=== PATIENT | female | born 1980 | race Caucasian/White ===

== ENCOUNTER 2021-11-14 13:31 | Emergency (ER) | payer BC, SELFPAY ==
--- NOTE | ~2021-11-14 | XR_ITS ---
EXAMINATION: XR chest 2V 11/14/2021 17:24 INDICATION: Cough and shortness of breath. PROCEDURE: 2 view chest COMPARISON: No prior studies for comparison. FINDINGS: The lungs are clear. The cardiomediastinal silhouette is within normal limits. There are no pleural effusions. There is no pneumothorax suspected. IMPRESSION: 1: NO ACUTE CARDIOPULMONARY DISEASE. Reviewed, dictated and finalized at location A. [facility] PATHOLOGY ASSISTANT
[2021-11-14 14:00] VITALS: BP 128/80; PULSE 99; RESP 16; TEMP 36.6; O2SAT 100
[2021-11-14 16:53] VITALS: BP 132/94; PULSE 90; RESP 16; TEMP 37; O2SAT 99
[2021-11-14 18:15] LABS: Basophils Percent Auto 0.6 % (0.2-1.2); Eosinophils Absolute Auto 0.1 K/mm3 (0-0.3); Eosinophils Percent Auto 1.7 % (0-4.4); Hematocrit 40.6 % (37.0-47.0); Hemoglobin 13.8 g/dL (12.0-15.0); Immature Granulocyte Absolute 0.03 K/mm3 (0.00-0.031); Immature Granulocyte Percent A 0.5 % (0-0.5); Lymphocytes Absolute Auto 2.72 K/mm3 (0.9-3.2); Lymphocytes Percent Auto 42.8 % (18.3-44.2); Mean Corpuscular Hemoglobin 31.1 pg (26-34); Mean Corpuscular Volume 91.4 fl (80-100); Mean Platelet Volume 8.3 fl (7.4-10.4); Monocytes Absolute Auto 0.4 K/mm3 (0.1-0.6); Monocytes Percent Auto 6.8 % (2.6-8.5); Neutrophils Percent Auto 47.6 % (45.5-73.1); Platelet Count Result 299 k/mm3 (150-375); Red Blood Count 4.44 M/mm3 (4.2-5.4); Red Cell Distribution Width 12.3 % (11.5-14.5); White Blood Count 6.4 K/mm3 (4.5-10.0)
[2021-11-14 18:21] LABS: D Dimer 0.33 ug/mL (<0.48)
--- NOTE | 2021-11-14 18:41 | ED.GENADULT ---
HPI - General Adult General Chief complaint: Unspecified Stated complaint: R Rib Pain x 2 days Time Seen by Provider: 11/14/21 17:02 Source: patient Mode of arrival: ambulatory Limitations: no limitations History of Present Illness HPI narrative: 40-year-old female Here because of right-sided lateral chest and rib pain To bothersome at rest hurts when she breathes and with certain movements The only thing that she recalls it might of happened when she was at work pulling something onto a trailer several days ago and gave it a good hard yank and the symptoms have been subsequent to that She does not have a cough or shortness of breath and no other systemic symptoms and no other injuries Related Data Allergies Allergy/AdvReac Type Severity Reaction Status Date / Time No Known Allergies Allergy Verified 11/14/21 16:56 Review of Systems Review of Systems: All systems reviewed & are unremarkable except as noted in HPI and below Constitutional: Constitutional: Reports no additional constitutional complaints, Denies chills and Denies fever(s) ENT: Denies headache(s) Cardiovascular: Cardiovascular: Reports chest pain, Reports chest pain with activity, Denies radiating jaw, neck or arm pain and Denies dyspnea Respiratory: Respiratory: Denies cough and Denies dyspnea Gastrointestinal: Gastrointestinal: Denies abdominal pain and Denies vomiting Genitourinary: Genitourinary: Denies hematuria Musculoskeletal: Musculoskeletal: Denies neck pain, Denies numbness, Denies radiating pain into limb and Denies stiffness Integumentary/Breasts: Skin/Breast: Denies rash and Denies wounds Neurologic: Denies headache(s) Psychiatric: Psychiatric: Reports no additional psychiatric complaints Exam Const: General: cooperative and no acute distress Orientation/consciousness: patient oriented x3 (alert) HENMT: Head: normal to inspection, normocephalic and atraumatic Ears: external ears normal General nose exam: no epistaxis Eyes: Conjunctivae: conjunctivae normal EOM: EOMs intact bilaterally Neck: Neck: normal visual inspection, supple and no JVD Chest: Chest palpation & inspection: normal inspection of the chest, normal palpation of entire chest wall, no crepitus, no localized rib tenderness and no tenderness Other: Cannot find any localizing tenderness but localized pain is reproduced with with twisting movements or with flexing the torso laterally to the left Resp: Effort & Inspection: normal respiratory effort and not labored Auscultation: clear to auscultation bilaterally, no rales, no rhonchi and no wheezes Cardio: Rate: regular rate Rhythm: regular rhythm Heart sounds: no murmurs Skin: General skin exam: normal color and no rashes or lesions noted Neuro: General: patient oriented x3 (alert) and moves all extremities Speech: normal speech Psych: Affect: normal affect Course Course Emergency Course: Went over the chest x-ray result with the patient and the likely diagnosis of intercostal strain but she left before her labs are returned and without receiving her discharge directions Vital Signs Vital signs: Vital Signs Temperature 36.6 C 11/14/21 14:00 Pulse Rate 99 11/14/21 14:00 Respiratory Rate 16 11/14/21 14:00 Blood Pressure 128/80 11/14/21 14:00 Pulse Oximetry 100 11/14/21 14:00 Temperature 37.0 C 11/14/21 16:53 Pulse Rate 90 11/14/21 16:53 Respiratory Rate 16 11/14/21 16:53 Blood Pressure 132/94 H 11/14/21 16:53 Pulse Oximetry 99 11/14/21 16:53 Medical Decision Making Vital Signs Vital Signs: Vital Signs Temperature 36.6 C 11/14/21 14:00 Pulse Rate 99 11/14/21 14:00 Respiratory Rate 16 11/14/21 14:00 Blood Pressure 128/80 11/14/21 14:00 Pulse Oximetry 100 11/14/21 14:00 Temperature 37.0 C 11/14/21 16:53 Pulse Rate 90 11/14/21 16:53 Respiratory Rate 16 11/14/21 16:53 Blood Pressure 132/94 H 11/14/21 16:53 Pulse Oximetry 99
== END 2021-11-14 18:46 | disposition left against medical advice (07) ==
PROVIDERS: Emergency Provider Emergency Medicine
DX: S29.011A Strain of muscle and tendon of front wall of thorax, initial encounter (principal); X50.0XXA Overexertion from strenuous movement or load, initial encounter
CPT/HCPCS: 36415; 71046; 85025; 85380; 99283

== ENCOUNTER 2022-10-18 08:38 | Emergency (ER) | payer BC, SELFPAY ==
--- NOTE | ~2022-10-18 | XR_ITS ---
EXAMINATION: XR chest 2V DATE: 10/18/2022 09:16 INDICATION: Shortness of breath. TECHNIQUE: Frontal and lateral views of the chest were obtained. COMPARISON: Chest 2 views 11/14/2021 FINDINGS: The chest demonstrates clear lungs without pneumonia, pleural effusion, or pneumothorax. Th e heart size is normal. IMPRESSION: 1. No acute cardiopulmonary disease. Reviewed, dictated and finalized at location A. CY SALES DIRECTOR
--- NOTE | 2022-10-18 08:40 | ECG_ITS ---
Measurements Intervals [place] Rate: 75 P: 69 MT: 149 QRS: 86 QRSD: 112 T: 58 QT: 386 QTc: 434 Interpretive Statements SINUS RHYTHM INCOMPLETE RIGHT BUNDLE BRANCH BLOCK DELAYED PRECORDIAL R/S TRANSITION BORDERLINE ECG NO PREVIOUS ECG AVAILABLE FOR COMPARISON Electronically Signed On 10-18-2022 9:13:31 PRODUCT INFO SPECIALIST by Judson Maravilla D.O.
[2022-10-18 08:42] VITALS: BP 120/66; PULSE 76; RESP 19; TEMP 36.7; O2SAT 100
[2022-10-18 09:02] LABS: Basophils Percent Auto 0.3 % (0.2-1.2); Eosinophils Absolute Auto 0.1 K/mm3 (0-0.3); Eosinophils Percent Auto 1.3 % (0-4.4); Hematocrit 34.8 % (37.0-47.0); Hemoglobin 11.4 g/dL (12.0-15.0); Immature Granulocyte Absolute 0.03 K/mm3 (0.00-0.031); Immature Granulocyte Percent A 0.4 % (0-0.5); Lymphocytes Absolute Auto 1.56 K/mm3 (0.9-3.2); Lymphocytes Percent Auto 22.5 % (18.3-44.2); Mean Corpuscular HGB Conc 32.8 g/dl (32-36); Mean Corpuscular Hemoglobin 30.6 pg (26-34); Mean Corpuscular Volume 93.5 fl (80-100); Mean Platelet Volume 8.6 fl (7.4-10.4); Monocytes Absolute Auto 0.5 K/mm3 (0.1-0.6); Monocytes Percent Auto 6.6 % (2.6-8.5); Neutrophils Absolute Auto 4.8 K/mm3 (1.3-6.7); Neutrophils Percent Auto 68.9 % (45.5-73.1); Platelet Count Result 302 k/mm3 (150-375); Red Blood Count 3.72 M/mm3 (4.2-5.4); White Blood Count 6.9 K/mm3 (4.5-10.0)
[2022-10-18 09:13] LABS: Alanine Aminotransferase 23 U/L (6-35); Albumin Level 4.1 g/dL (3.5-5.1); Alkaline Phosphatase 56 U/L (38-126); Anion Gap 11 mmol/L (8-16); Aspartate Amino Transferase 27 U/L (14-36); Bilirubin,Total 0.2 mg/dL (0.2-1.3); Blood Urea Nitrogen 14 mg/dL (7-17); Calcium 8.7 mg/dL (8.4-10.2); Carbon Dioxide 23 mmol/L (22-30); Chloride 105 mmol/L (98-107); Estimated CRCL calculation 104 ml/min; Estimated Glomerular Filt Rate > 60; Glucose 123 mg/dL (65-110); Potassium 3.9 mmol/L (3.4-5.0); Sodium 139 mmol/L (137-145)
[2022-10-18 09:14] LABS: Appearance Urine Slightly Cloudy (Clear); Bilirubin Urine Negative (Negative); Blood Urine Negative (Negative); Color Urine Yellow (Yellow); Glucose Urine UA Negative (Negative); Ketones Urine Trace mg/dL (Negative); Leukocyte Esterase Ur Trace LEU/UL (Negative); Nitrate Urine Negative (Negative); Protein Urine 1+ mg/dL (Negative); Specific Grav Ur 1.025 (1.001-1.035)
[2022-10-18 09:19] LABS: Bacteria Urine 1+ /hpf; Mucus Urine Moderate /lpf; Squamous Epithelial Cell Urine Many /hpf (Few)
[2022-10-18 09:21] LABS: Add Urine Microscopic? YES
[2022-10-18 09:40] VITALS: BP 125/76; PULSE 77; RESP 18; O2SAT 100
[2022-10-18 09:47] LABS: Troponin I < 0.012 ng/mL (0.000-0.034)
[2022-10-18 09:55] LABS: Influenza A QL RT-PCR Negative (Negative); Influenza B QL RT-PCR Negative (Negative); SARS-CoV-2 RNA PCR Negative
--- NOTE | 2022-10-18 10:23 | ED.URI ---
HPI - URI/Sore Throat General Chief Complaint: Shortness of Breath/Dyspnea Stated Complaint: SOB Time Seen by Provider: 10/18/22 09:43 Source: patient Mode of arrival: ambulatory Limitations: no limitations History of Present Illness HPI Narrative: This is a 41-year-old female that presents to the emergency department for cold symptoms ongoing over the last couple of days. Reports sore throat, cough, and malaise. Also reports she has had some intermittent sharp, substernal chest pain. Reports this is worse with coughing. She does not have any chest pain currently. Reports she is intermittently noted some wheezing. She is a smoker. Denies fevers or current shortness of breath. Related Data Allergies Allergy/AdvReac Type Severity Reaction Status Date / Time No Known Allergies Allergy Verified 10/18/22 08:50 Review of Systems Review of Systems: CONSTITUTIONAL: Denies fever ENT: Reports congestion, sore throat CARDIOVASCULAR: Reports chest pain. Denies edema. RESPIRATORY: Reports cough. Denies dyspnea. All systems reviewed & are unremarkable except as noted in HPI and below PMFSH Past Medical History Medical History (Updated 10/18/22 @ 11:39 by Antonia Castaneda PA-C) History of substance abuse Social History Social History (Updated 10/18/22 @ 10:26 by Antonia Castaneda PA-C) Smoking status: Current every day smoker Substance use: former Exam Narrative: GENERAL: Well-appearing, well-nourished, and in no acute distress. HEAD: Normocephalic, atraumatic. EYES: EOMI. ENT: Nares clear, no rhinorrhea or epistaxis. Mucous membranes moist. Oropharynx with symmetric tonsillar hypertrophy and mild redness, no exudate or other lesions. Bilateral TMs pearly posada non-bulging NECK: Supple. No adenopathy or masses. CHEST: Clear to auscultation. No respiratory distress. No wheezes rales or rhonchi HEART: Regular rate and rhythm. No murmur heard. Normal peripheral pulses. EXTREMITIES: Normal range of motion. No edema. SKIN: Warm, dry, no rash. NEURO: No focal deficits. Alert and oriented x3. PSYCH: Normal mood and affect Course Vital Signs Vital signs: Vital Signs Temperature 98.1 F 10/18/22 08:42 Pulse Rate 76 10/18/22 08:42 Respiratory Rate 19 10/18/22 08:42 Blood Pressure 120/66 10/18/22 08:42 Pulse Oximetry 100 10/18/22 08:42 Oxygen Delivery Room Air 10/18/22 08:42 Temperature 98.1 F 10/18/22 08:42 Pulse Rate 77 10/18/22 09:40 Respiratory Rate 18 10/18/22 09:40 Blood Pressure 125/76 10/18/22 09:40 Pulse Oximetry 100 10/18/22 09:40 Oxygen Delivery Room Air 10/18/22 08:42 MDM - URI/Sore Throat MDM Narrative Medical decision making narrative: Patient presents to the emergency department for cold symptoms present over the last couple of days. She is afebrile and nontoxic-appearing. Her vitals are stable. Lungs are clear on exam. CBC is without leukocytosis. Shows normocytic anemia with hemoglobin of 11.4. Metabolic panel without concerning findings. Baseline troponin is negative. EKG without acute ST changes. UA likely contaminated catch, patient denies any current urinary symptoms. This will be sent for culture. Influenza, COVID and strep screens are negative. Chest x-ray without acute cardiopulmonary abnormality. Patient was updated on case findings. She was instructed on continued care of viral infection. She is to follow-up with her primary care provider. She was given warnings to return to the ER Lab Data Attestation: I reviewed the patient's lab results. Result diagrams: 10/18/22 08:53 10/18/22 08:53 Labs: Lab Results 10/18/22 10/18/22 10/18/22 Range/Units 08:53 08:53 08:53 WBC 6.9 (4.5-10.0) K/mm3 RBC 3.72 L (4.2-5.4) M/mm3 Hgb 11.4 L (12.0-15.0) g/dL Hct 34.8 L (37.0-47.0) % MCV 93.5 (80-100) fl MCH 30.6 (26-34) pg MCHC 32.8 (32-36) g/dl RDW 13.0 (11.5-14.5) % Plt C
[2022-10-18 11:49] VITALS: BP 134/86; PULSE 76; RESP 16; O2SAT 99
== END 2022-10-18 11:51 | disposition home or self-care (01) ==
PROVIDERS: Emergency Provider Emergency Medicine
DX: J06.9 Acute upper respiratory infection, unspecified (principal); Z20.822 Contact with and (suspected) exposure to COVID-19; F17.210 Nicotine dependence, cigarettes, uncomplicated
CPT/HCPCS: 36415; 71046; 80053; 81001; 81025; 84484; 85025; 87081; 87086; 87088; 87636; 87880; 93005; 99284